=== PATIENT | male | born 1955 | race Caucasian/White ===

== ENCOUNTER 2020-04-26 12:30 | Outpatient (CLI) | payer MEDICARE, MEDICAID, SELFPAY | END 2020-04-26 12:31 | disposition home or self-care (01) | LOC: SLEEP 04-27 16:02 | PROVIDERS: Family Provider Nurse Practitioner Family; PCP Nurse Practitioner Family; Visit Provider Nurse Practitioner | DX: G47.30 Sleep apnea, unspecified (principal) | CPT/HCPCS: G0399 ==

== ENCOUNTER 2020-06-03 20:00 | Outpatient (CLI) | payer MEDICARE, MEDICAID, SELFPAY | END 2020-06-03 20:01 | disposition home or self-care (01) | LOC: SLEEP 06-04 08:53 | PROVIDERS: Family Provider Nurse Practitioner Family; PCP Nurse Practitioner Family; Visit Provider Nurse Practitioner | DX: G47.33 Obstructive sleep apnea (adult) (pediatric) (principal) | CPT/HCPCS: 95811 ==

== ENCOUNTER 2022-04-24 13:54 | Emergency (ER) | payer MEDICARE, MEDICAID, SELFPAY ==
[2022-04-24 14:09] VITALS: BP 165/86; PULSE 64; RESP 16; TEMP 36.3; O2SAT 97; BMI 31.8
[2022-04-24 14:31] LABS: Basophils # 0.1 10^3/uL (0.0-0.1); Basophils % 0.6 %; Eosinophils # 0.2 10^3/uL (0.0-0.8); Eosinophils % 1.4 %; Hematocrit 49.5 % (42.0-52.0); Hemoglobin 16.9 g/dL (11.7-16.6); Lymphocytes # 1.2 10^3/uL (0.8-4.8); Lymphocytes % 8.9 %; Mean Corpuscular HGB Conc 34.1 g/dL (30.0-36.0); Mean Corpuscular Hemoglobin 30.7 pg (28.0-34.0); Mean Platelet Volume 10.8 fL (7.4-10.4); Monocytes # 0.8 10^3/uL (0.2-0.9); Neutrophils # 11.36 10^3/uL (1.8-7.7); Neutrophils % 82.5 %; Nucleated Red Blood Cells % 0 %; Platelet Count 228 10^3/cmm (130-400); Red Cell Distribution Width 13.7 % (12.1-15.1); White Blood Count 13.8 10^3/uL (4.0-10.0)
[2022-04-24 14:52] LABS: Blood Urea Nitrogen 16 mg/dL (8-23); Calcium 10.1 mg/dL (8.5-10.5); Carbon Dioxide 23 mmol/L (22-29); Chloride 97 mmol/L (98-107); Glomerular Filtration Rate 96.7 mL/min (90-130); Glucose 152 mg/dL (65-115); Osmolality Calculated 286 mOsm/kg (285-295); Sodium 136 mmol/L (136-145)
--- NOTE | 2022-04-24 14:54 | CTR_ITS ---
PROCEDURE INFORMATION: Exam: CT Abdomen And Pelvis Without Contrast Exam date and time: 04/24/2022 3:27 PM Age: 66 years old Clinical indication: Pain; Other: RT flank; Prior surgery; Surgery date: 6+ months; Surgery type: Appx; Additional info: Flank pain x 2 hrs TECHNIQUE: Imaging protocol: Computed tomography of the abdomen and pelvis without contrast. Radiation optimization: All CT scans at this facility use at least one of these dose optimization techniques: automated exposure control; mA and/or kV adjustment per patient size (includes targeted exams where dose is matched to clinical indication); or iterative reconstruction. COMPARISON: No relevant prior studies available. RADIATION DOSE METRICS: Total DLP (mGy-cm): 1767.44 FINDINGS: Liver: Normal liver size without cirrhosis. Well-defined hypodense lesion in the anterior aspect measuring 2 cm, likely benign such as hepatic cyst. Gallbladder and bile ducts: Cholecystectomy clips. Pancreas: Normal. No ductal dilation. Spleen: Normal. No splenomegaly. Adrenal glands: Normal. No mass. Kidneys and ureters: There is mild right hydronephrosis and diffuse hydroureter and mild regional stranding. No significant regional fluid collection. No obvious ureteral calculi however there is a punctate calculus measuring 2 x 2 x 2 mm in the posterior bladder. Unclear if this is a passed calculus in the lumen or impacted calculus near the right UVJ. Follow-up exam with prone positioning may be considered if clinically indicated. Stomach and bowel: Small amount of fecal retention. No obvious bowel dilatation, pneumatosis or suspicious bowel wall thickening however assessment is limited due to lack of contrast. Colonic diverticulosis. Appendix: Prior appendectomy. Intraperitoneal space: Unremarkable. No free air. No significant fluid collection. Vasculature: No abdominal aortic aneurysm. Lymph nodes: No enlarged lymph nodes. Urinary bladder: There is curvilinear tiny lucency in the submucosal region of urinary bladder suggesting benign finding. However cystitis should also be excluded clinically. No perinephric stranding. Reproductive: Unremarkable as visualized. Bones/joints: Rotatory leftward scoliosis of lumbar spine and rightward scoliosis of lower thoracic spine.. Bibasilar linear scarring-atelectasis. Multilevel vertebral disc degeneration and endplate osteophytes. No acute osseous findings otherwise. Soft tissues: There is a right periumbilical fat-containing hernia with defect measuring 17 mm and hernia sac measuring 4.5 by 3.2 cm. Another smaller midline fat-containing supraumbilical hernia is also present. No bowel containing ventral or inguinal hernias. CT/CT kidney stone [id number] IMPRESSION: 1. Punctate calculus measuring 2 mm in the bladder lumen versus right UVJ. There is mild associated right hydronephrosis and hydroureter and minimal stranding. See discussion above. Additional urinary bladder findings as described above. 2. Colonic diverticulosis. 3. Fat-containing hernias. 4. Other nonacute findings as described.
--- NOTE | 2022-04-24 14:55 | ED_ITS ---
HPI - Abdominal Pain General: Chief Complaint: Abdominal Pain Stated Complaint: back pain Time Seen by Provider: 04/24/22 14:22 Source: patient Mode of arrival: ambulatory History of Present Illness: 66-year-old male presents to the emergency room with complaints of right-sided flank pain with nausea and urgency that began about 2 hours ago he denies any hematuria. No rash no fever sweats or chills. No history of renal stones. MD elicited complaint: flank pain Pertinent past history: none Onset (ago): hour(s) Pain Consistency: constant Location: R flank Severity: moderate Quality: stabbing Radiation: none Exacerbating factors: nothing Relieving factors: nothing Associated Symptoms: Reports nausea; Denies anorexia, belching, bloating, change in bowel habits, change in stool character, chills, coffee ground emesis, constipation, GI cramping, diarrhea, dyspepsia, dysuria, excessive flatus, fever(s), heartburn, hematochezia, hematuria, fecal incontinence, loose stools, melena, poor appetite, syncope and vomiting Review of Systems Const: Denies: fever(s) or chills Card: Denies: chest pain or syncope GI: Reports: abdominal pain and nausea; Denies: vomiting, coffee ground emesis, heartburn, diarrhea, constipation, bloating, GI cramping, belching, excessive flatus, fecal incontinence, change in bowel habits, change in stool character, hematochezia or melena : Reports: flank pain; Denies: difficulty urinating, dysuria, urinary frequency or hematuria [facility] ED PFSH: Medical History (Updated 04/24/22 @ 17:07 by Calos Beck DO) COPD (chronic obstructive pulmonary disease) Headache Hernia HTN (hypertension) Mixed hyperlipidemia Obstructive sleep apnea Scoliosis Family History (Updated 02/14/22 @ 10:08 by Tracye Belcher RN) Father Cardiovascular disease Prostate cancer Mother Diabetes Cancer Physical Exam Const: COMMON NORMALS: no acute distress GENERAL APPEARANCE: cooperative and comfortable ORIENTATION/CONSCIOUSNESS: Yes awake, Yes oriented to person, Yes oriented to place and Yes oriented to time HENMT: COMMON NORMALS: normocephalic, atraumatic and hearing grossly normal bilaterally HEAD & SCALP: normocephalic and atraumatic Neck/C-Spine: COMMON NORMALS: no JVD Resp: COMMON NORMALS: normal respiratory effort, No retractions, No use of accessory muscles and clear to auscultation bilaterally AUSCULTATION: clear to auscultation bilaterally Cardio: COMMON NORMALS: no JVD, regular rate, regular rhythm and No murmurs present (Cardio) RATE: regular rate RHYTHM: regular rhythm GI: COMMON NORMALS: Soft to palpation and No hepatosplenomegaly present AUSCULTATION: Yes normoactive bowel sounds PALPATION: Yes Soft to palpation, No Tenderness to palpation present (GI), No Guarding due to palpation present (GI) and Yes No hepatosplenomegaly present Extremity: COMMON NORMALS: normal to inspection, capillary refill normal, no clubbing, cyanosis or edema, no calf tenderness and no pedal edema Neuro: SENSORIUM/ORIENTATION: Yes oriented to person, Yes oriented to place and Yes oriented to time Skin: COMMON NORMALS: no rashes or lesions noted GENERAL SKIN EXAM: no rashes or lesions noted Course Vital Signs: Vital signs: Vital Signs Temperature 97.4 F L 04/24/22 14:09 Pulse Rate 64 04/24/22 14:09 Respiratory Rate 19 H 04/24/22 16:29 Blood Pressure 165/86 04/24/22 14:09 Pulse Oximetry 93 04/24/22 16:29 MDM - Abdominal Pain Medical Decision Making Right UVJ stone. We will set him strain urine start tamsulosin hydrocodone and Zofran. Follow-up with urology Medical Records I reviewed the patient's medical records. Lab Data I reviewed the patient's lab results. : 04/24/22 14:26 04/24/22 14:26 Labs/Radiology: Radiology Impressions Abdomen/Pelvis CT 04/24/22 14:54 IMPRESSION: 1. Punctate calculus measuring 2 mm in the bladder lumen versus right UVJ. There is mild associated right hydronephrosis and hydroureter and minimal stranding. See discussion above. Additional urinary bladder findings as described above. 2. Colonic diverticulosis. 3. Fat-containing hernias. 4. Other nonacute findings as described. Laboratory Results WBC 13.8 10^3/uL (4.0-10.0) H 04/24/22 14:26 RBC 5.50 10^6/uL (4.1-5.3) H 04/24/22 14:26 Hgb 16.9 g/dL (11.7-16.6) H 04/24/22 14: Hct 49.5 % (42.0-52.0) 04/24/22 14: MCV 90.0 fl (80-94) 04/24/22 14:26 MCH 30.7 pg (28.0-34.0) 04/24/22 14: MCHC 34.1 g/dL (30.0-36.0) 04/24/22 14: RDW 13.7 % (12.1-15.1) 04/24/22 14: Plt Count 228 10^3/cmm (130-400) 04/24/22 14: MPV 10.8 fL (7.4-10.4) H 04/24/22 14: Neut % (Auto) 82.5 % 04/24/22 14: Lymph % (Auto) 8.9 % 04/24/22 14: Reynolds % (Auto) 6.0 % 04/24/22 14: Eos % (Auto) 1.4 % 04/24/22 14:26 Baso % (Auto) 0.6 % 04/24/22 14: Neut # (Auto) 11.36 10^3/uL (1.8-7.7) H 04/24/22 14: Lymph # (Auto) 1.2 10^3/uL (0.8-4.8) 04/24/22 14: Reynolds # (Auto) 0.8 10^3/uL (0.2-0.9) 04/24/22 14: Eos # (Auto) 0.2 10^3/uL (0.0-0.8) 04/24/22 14: Baso # (Auto) 0.1 10^3/uL (0.0-0.1) 04/24/22 14: Nucleated RBC % (auto) 0 % 04/24/22 14: Nucleated RBCs # 0.0 /100WBC 04/24/22 14:26 Sodium 136 mmol/L (136-145) 04/24/22 14:26 Potassium 4.0 mmol/L (3.5-5.1) 04/24/22 14: Chloride 97 mmol/L (98-107) L 04/24/22 14:26 Carbon Dioxide 23 mmol/L (22-29) 04/24/22 14:26 Anion Gap 20.0 (5-19) H 04/24/22 14:26 BUN 16 mg/dL (8-23) 04/24/22 14:26 Creatinine 0.8 mg/dL (0.7-1.2) 04/24/22 14:26 GFR Calculation 96.7 mL/min (90-130) 04/24/22 14:26 Glucose 152 mg/dL (65-115) H 04/24/22 14:26 Calculated Osmolality 286 mOsm/kg (285-295) 04/24/22 14:26 Calcium 10.1 mg/dL (8.5-10.5) 04/24/22 14:26 Total Bilirubin 0.7 mg/dL (0.15-1.2) 04/24/22 14:26 Direct Bilirubin 0.20 mg/dL (0.00-0.30) 04/24/22 14:26 AST 17 U/L (0-40) 04/24/22 14:26 ALT 15 U/L (0-41) 04/24/22 14:26 Alkaline Phosphatase 80 IU/L (40-130) 04/24/22 14:26 Total Protein 7.9 g/dL (6.6-8.7) 04/24/22 14:26 Albumin 4.5 g/dL (3.5-5.2) 04/24/22 14:26 Globulin 3.4 g/dL (1.3-4.6) 04/24/22 14:26 Urine Color Hillary (Yellow) 04/24/22 15:00 Urine Appearance Cloudy (CLEAR) 04/24/22 15:00 Urine pH 6 (5-7) 04/24/22 15:00 Ur Specific Bruner 1.020 (1.005-1.030) 04/24/22 15:00 Urine Protein 1+ (Negative) H 04/24/22 15:00 Urine Glucose (UA) Norm (Normal) 04/24/22 15:00 Urine Ketones 2+ (Negative) H 04/24/22 15:00 Urine Blood 3+ (Negative) H 04/24/22 15:00 Urine Nitrate Negative (Negative) 04/24/22 15:00 Urine Bilirubin 1+ (Negative) H 04/24/22 15:00 Urine Urobilinogen 1 mg/dL (Negative) H 04/24/22 15:00 Ur Leukocyte Esterase Negative (Negative) 04/24/22 15:00 Urine RBC 15-25 /hpf (0-2) H 04/24/22 15:00 Urine WBC 5-10 /hpf (0-5) H 04/24/22 15:00 Ur Squamous Epith Cells 0-4 /hpf (0-5) H 04/24/22 15:00 Amorphous Sediment Not Reportable 04/24/22 15:00 Urine Bacteria 2+ /hpf (NONE) H 04/24/22 15:00 Hyaline Casts 0-4 /lpf H 04/24/22 15:00 Urine Mucus 3+ /hpf 04/24/22 15:00 Discharge Plan Discharge Patient Disposition: Home Clinical Impression: Nephrolithiasis Condition: Stable Prescriptions: New hydrocodone-acetaminophen 5-325 mg tablet 1 tab PO Q6H PRN (Reason: pain) Qty: 15 0RF promethazine 25 mg tablet 25 mg PO Q6H PRN (Reason: nausea and vomiting) Qty: 20 0RF tamsulosin 0.4 mg capsule 0.4 mg PO DAILY Qty: 20 0RF No Action albuterol sulfate 90 mcg/actuation aerosol powdr breath activated 2 inh inhalation Q4H PRN (Reason: Shortness Of Breath) 0RF duloxetine [Cymbalta] 30 mg capsule,delayed release(DR/EC) 30 mg PO DAILY 0RF lisinopril 10 mg tablet 20 mg PO DAILY 0RF rosuvastatin 10 mg tablet 10 mg PO DAILY 0RF fluoxetine 20 mg capsule 20 mg PO DAILY 0RF Discharge Orders: Discharge ED (Routine); Ordered 04/24/22 Ordered By: Calos Beck Referrals: Melecio Walter FNP [Primary Care Provider] - Discharge Diet: Usual diet Discharge Activity: Increase activity as tolerated Patient Instructions: Opioid Safety Activity Restrictions/Additional Instructions: Case management make arrangements for you to follow-up with urology. Strain urine to catch the stone to submit for pathology. Coding Level of Care Code ED Cad Administrator for Chg Fwd Exam Comprehensive
[2022-04-24 15:11] LABS: Alanine Aminotransferase 15 U/L (0-41); Albumin Level 4.5 g/dL (3.5-5.2); Alkaline Phosphatase 80 IU/L (40-130); Aspartate Amino Transferase 17 U/L (0-40); Globulin 3.4 g/dL (1.3-4.6); Total Bilirubin 0.7 mg/dL (0.15-1.2); Total Protein 7.9 g/dL (6.6-8.7)
[2022-04-24 15:16] VITALS: RESP 18; O2SAT 98
[2022-04-24] MEDS: ondansetron 2 mg/ML SDV 2 mL 4 MG IVP (15:16)
[2022-04-24] MEDS: morphine 4 mg/mL SDV 1 mL IVP (15:16)
[2022-04-24 15:21] LABS: Add Urine Microscopic? YES; Bilirubin Urine 1+ (Negative); Blood Urine 3+ (Negative); Glucose Urine UA Norm (Normal); Ketones Urine 2+ (Negative); Leukocyte Esterase Urine Negative (Negative); Nitrate Urine Negative (Negative); Protein Urine 1+ (Negative); Urine Appearance Cloudy (CLEAR); Urine Color Amber (Yellow); Urobilinogen Urine 1 mg/dL (Negative); pH Urine 6 (5-7)
[2022-04-24 15:22] LABS: Add Urine Culture? Yes; Bacteria Urine 2+ /hpf; Hyaline Casts Urine 0-4 /lpf; Mucus Urine 3+ /hpf; RBC Urine 15-25 /hpf (0-2); Squamous Epithelial Cell Urine 0-4 /hpf (0-5)
[2022-04-24 15:50] VITALS: O2SAT 93
[2022-04-24 16:29] VITALS: RESP 19; O2SAT 93
[2022-04-24] MEDS: morphine 4 mg/mL SDV 1 mL 2 MG IVP (16:29)
--- NOTE | 2022-04-25 07:16 | DCPLANNER ---
Addendum entered by Amber Pinto 05/15/22 14:13: Patient had a follow up appointment scheduled for 05.01.[address] Carnes - patient did not attend appointment. Original Note: commercial project manager had message to schedule a follow up appointment for patient with urology. commercial project manager sent patients information to the front office staff at urology. Patients information will be printed and reviewed. Clinic will call patient with appointment information.
== END 2022-04-24 17:23 | disposition home or self-care (01) ==
PROVIDERS: Emergency Provider Family Medicine; PCP Nurse Practitioner Family
DX: N20.0 Calculus of kidney (principal); J44.9 Chronic obstructive pulmonary disease, unspecified; I10 Essential (primary) hypertension; E78.2 Mixed hyperlipidemia
CPT/HCPCS: 74176; 80048; 80076; 81001; 85025; 87086; 96374; 96375; 96376; 99284; J2270; J2405

== ENCOUNTER → 2022-05-30 09:48 | Outpatient (BNVA) | payer MEDICARE, MEDICAID, SELFPAY | PROVIDERS: PCP Nurse Practitioner Family; Visit Provider Orthopaedic Surgery | DX: M17.11 Unilateral primary osteoarthritis, right knee (principal); M41.87 Other forms of scoliosis, lumbosacral region; M47.897 Other spondylosis, lumbosacral region; M47.816 Spondylosis without myelopathy or radiculopathy, lumbar region; M41.9 Scoliosis, unspecified | CPT/HCPCS: 72110; 73560; 73565; 99204 ==

== ENCOUNTER → 2024-05-15 14:16 | Outpatient (BNVA) | payer MEDICARE, MEDICAID, SELFPAY | PROVIDERS: PCP Nurse Practitioner; Referring Provider Nurse Practitioner; Visit Provider Internal Medicine | DX: R07.9 Chest pain, unspecified (principal); E78.2 Mixed hyperlipidemia; I10 Essential (primary) hypertension; R06.02 Shortness of breath; F17.200 Nicotine dependence, unspecified, uncomplicated | CPT/HCPCS: 93005; 99204 ==

== ENCOUNTER 2024-06-10 09:57 | Outpatient (CLI) | payer MEDICARE, MEDICAID, SELFPAY ==
[2024-06-10 10:13] VITALS: BMI 32.4
--- NOTE | 2024-06-10 10:15 | NMCV_ITS ---
NM zully perf SPECT r/s* [id number] Juan Alvarez Age: 68 Gender: M : 1955 Exam Date: 06/10/2024 10:15 Ordering Phys: Shun Bowers M.D ([email or web address]) Technologist: SEBASTIAN Rubio Exam Location: [facility] Indications: CP, SOB STRESS TEST Please see separate stress test report in [facility] for full findings IMAGE PROTOCOL Rest/Stress 1 Lexiscan Day Radiopharmaceutical Dose (mCi) Administration Site Administered by Rest: Tc-99m 10.6 IV SEBASTIAN Rubio Sestamibi Stress:Tc-99m 32.4 IV SEBASTIAN Rubio Sestamibi Rest: 10-Jun-2024 60 Discovery 630 Stress: 10-Jun-2024 30 Discovery 630 0.4mg Lexiscan. Supine position only as patient was unable to lay prone. SPECT RESULTS Technical Quality: Good Raw Data Analysis: Normal Image Corrections: No attenuation or motion correction applied Summed Stress Score: 4 Summed Rest Score: 1 Summed Difference Score: 3 PERFUSION FINDINGS There is small sized, partially reversible perfusion defect seen in apical and apical septal nava. 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 FUNCTIONAL RESULTS (calculated via Gated SPECT) Stress Image LV EF (%): 53 Stress EDV (mL):138 TID: 1.11 Stress ESV (mL):65 FUNCTIONAL FINDINGS: There is normal left ventricular systolic function. IMPRESSIONS 1. 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 2. LV systolic function is normal. Shnu Bowers MD (Electronically Signed) Final Date: 11 June 2024 11:18 S
--- NOTE | 2024-06-10 10:15 | ECG_ITS ---
[facility] Test Date: 2024-06-10 Pat Name: Juan Alvarez Department: Room: Gender: Male Outside Physical Damage Appraiser: : 1955 Requested By: Shun Bowers Order Number: [id number] Bishop MD: Shun Bowers M.D. Interpretive Statements NAME OF STUDY: LEXISCAN SESTAMIBI STRESS TEST INDICATION: [CP/SOB, ] Procedure: At the baseline, the blood pressure was 149/87 mmHg with a heart rate of 61 bpm. The electrocardiogram showed normal sinus rhythm, normal axis with normal ST and T's. The Lexiscan was infused over a period of 20 seconds. A total of 0.4 mg of Lexiscan was infused. The stress phase was continued for a total of 5 minutes. Heart rate was at the end of stress phase was 75 bpm and a blood pressure of 144/87 mmHg. The EKG at the peak infusion revealed normal sinus rhythm with no significant ST-T wave changes. Sestamibi was injected 20 seconds after the Lexiscan infusion. Blood pressure at the end of recovery phase was 125/72 mmHg with a heart rate of 76 bpm. Conclusion: 1. Normal EKG response to Lexiscan infusion 2. No Lexiscan induced chest pain or cardiac arrhythmia. 3. Normal blood pressure and heart rate response. 4. Sestamibi/sestamibi perfusion scan pending; see separate report. Electronically Signed On 06-14-2024 9:33:01 CDT by Shun Bowers M.D. [id number]
[2024-06-10] MEDS: regadenoson 0.4 Mg/5 ml Syringe IVP (11:26)
[2024-06-10 11:38] VITALS: BP 125/72; PULSE 73
--- NOTE | 2024-06-10 14:15 | USCV_ITS ---
Juan Alvarez Age: 68 Gender: M : 1955 Exam Date: 06/10/2024 10:26 Ordering Phys: Shun Bowers M.D ([email or web address]) Technologist: Exam Location: [facility] [place] Indication: cp BP: 136 / 0 HR: 58 Rhythm: Sinus Technical Quality: Adequate MEASUREMENTS (Male / Female) Normal Values 2D ECHO LV Diastolic Diameter PLAX 4.9 cm 4.2 - 5.9 / 3.9 - 5.3 cm IVS Diastolic Thickness 1.3 cm 0.6 - 1.0 / 0.6 - 0.9 cm IVS Systolic Thickness 1.8 cm LVPW Diastolic Thickness 1.0 cm 0.6 - 1.0 / 0.6 - 0.9 cm LVPW Systolic Thickness 1.6 cm LVOT Diameter 2.0 cm LV Ejection Fraction 2D Teich 65.4 % LV Ejection Fraction MOD 4C 67.4 % LA Diameter 3.8 cm RA Systolic Volume 4C AL 84.5 ml RA Systolic Volume 4C MOD 81.7 ml Aorta at Sinotubular Diameter 3.4 cm IVC Diameter 2.5 cm M-MODE LA Ao Ratio MM 1.5 AV Cusp Separation MM 2.6 cm DOPPLER AV Peak Velocity 97.0 cm/s LVOT Peak Velocity 86.0 cm/s AV Area Cont Eq vti 4.2 cm squared AV Area Cont Eq pk 2.9 cm squared MV Area PHT 3.1 cm squared Mitral E to A Ratio 0.8 TR Peak Velocity 407.0 cm/s TR Peak Gradient 66.3 mmHg TV Peak E Velocity 72.0 cm/s Right Atrial Pressure 3.0 mmHg Pulmonary Artery Systolic Pressu 69.3 mmHg PV Peak Velocity 98.0 cm/s FINDINGS Left Ventricle Left ventricle is normal size. LV systolic function is normal with EF of 60 to 65%. No regional wall motion abnormalities are seen. False tendon seen in LV. Grade 1 diastolic dysfunction. Right Ventricle Normal in size and function Right Atrium Dilated Left Atrium Dilated Mitral Valve Structurally normal mitral valve. Aortic Valve Structurally normal aortic valve. No significant stenosis or regurgitation. Tricuspid Valve Mild tricuspid regurgitation. Insufficient TR jet to calculate RVSP Pulmonic Valve Not well visualized Pericardium Normal Aorta Normal in size IVC Appears to be normal CONCLUSIONS LV systolic function is normal with EF of 60-65% Grade 1 diastolic dysfunction Biatrial enlargement Mild tricuspid regurgitation Compared to prior echocardiogram from 2014, no significant changes are seen. Shun Bowers MD (Electronically Signed) Final Date: 14 June 2024 11:51 S
== END 2024-06-10 09:58 | disposition home or self-care (01) ==
PROVIDERS: PCP Nurse Practitioner; Visit Provider Internal Medicine
DX: I50.30 Unspecified diastolic (congestive) heart failure (principal); I51.7 Cardiomegaly; R94.39 Abnormal result of other cardiovascular function study; R07.9 Chest pain, unspecified; R06.02 Shortness of breath
CPT/HCPCS: 36415; 78452; 93017; 93306; 96375; A9500; J2785

== ENCOUNTER → 2024-07-24 09:45 | Outpatient (BNVA) | payer MEDICARE, MEDICAID, SELFPAY | PROVIDERS: PCP Nurse Practitioner; Visit Provider Nurse Practitioner Family | DX: I10 Essential (primary) hypertension (principal); R07.9 Chest pain, unspecified; R94.39 Abnormal result of other cardiovascular function study; F17.210 Nicotine dependence, cigarettes, uncomplicated | CPT/HCPCS: 99214 ==

== ENCOUNTER 2025-06-30 13:50 | Outpatient (CLI) | payer MEDICARE, MEDICAID, SELFPAY ==
--- NOTE | 2025-06-30 13:58 | CT_ITS ---
WS: [id number] CT chest w con* [id number] HISTORY: ABNORMAL FINDINGS ON DX IMAGING OF OTH BODY STRUCTURES TECHNIQUE: Axial imaging performed through the thorax. Coronal and sagittal reformats are submitted. All CT scans at [facility] use at least one of these dose optimization techniques: automated exposure control; mA and/or kV adjustment per patient size (includes targeted exams where dose is matched to clinical indication); or iterative reconstruction. CONTRAST: Omnipaque 350; 100 mL IV. DLP: 638.57 mGy.cm COMPARISON: 08/27/2014, chest CT report 06/18/2025 Lungs and central airway: Deformity of the lungs due to scoliosis thoracolumbar spine. Linear atelectasis at the lung bases. No lobar collapse. No pulmonary mass or nodule. Pleura: Normal. No pleural effusion. Heart and pericardium: Normal size heart with no pericardial effusion. Mediastinum and casey: No mediastinum or hilar adenopathy. Vessels: Atherosclerosis aorta. Marked tortuosity of the thoracic aorta in part due to the scoliosis. Normal size pulmonary artery. Chest wall and lower neck: No soft tissue masses. Upper abdomen: Reidentified is a cyst in the LEFT lobe of the liver measuring 2.2 cm. No adrenal mass. Visualized kidneys are normal. Prior cholecystectomy. Osseous structures: Severe RIGHT curvature thoracic spine. CT/CT chest w con* [id number] IMPRESSION: 1. No pneumonia or mass. 2. Tortuous mildly ectatic thoracic aorta. No aneurysm. 3. Severe scoliosis thoracolumbar spine with curvature to the RIGHT. Resulting in deformity of the mediastinum and lungs. 4. Prior cholecystectomy.
[2025-06-30] MEDS: iohexol 350 mg/mL 500 mL Btl (per mL) IV (14:17)
== END 2025-06-30 13:51 | disposition home or self-care (01) ==
LOC: RAD 13:51
PROVIDERS: PCP Nurse Practitioner; Visit Provider Nurse Practitioner
DX: R93.89 Abnormal findings on diagnostic imaging of other specified body structures (principal); M41.9 Scoliosis, unspecified; J98.11 Atelectasis; K76.89 Other specified diseases of liver; Z90.49 Acquired absence of other specified parts of digestive tract
CPT/HCPCS: 71260

== ENCOUNTER 2025-08-04 12:46 | Outpatient (CLI) | payer MEDICARE, MEDICAID, SELFPAY ==
[2025-08-04 13:25] VITALS: PULSE 70; RESP 18; O2SAT 91
== END 2025-08-04 12:47 | disposition home or self-care (01) ==
PROVIDERS: PCP Nurse Practitioner; Visit Provider Nurse Practitioner
DX: R06.02 Shortness of breath (principal); J44.9 Chronic obstructive pulmonary disease, unspecified; R94.2 Abnormal results of pulmonary function studies
CPT/HCPCS: 94060; 94726; 94729; J7613

== ENCOUNTER 2025-09-23 16:28 | Outpatient (CLI) | payer MEDICARE, MEDICAID, SELFPAY ==
--- NOTE | 2025-09-23 16:52 | CTR_ITS ---
PROCEDURE INFORMATION: Exam: CT Chest With Contrast; Diagnostic Exam date and time: 09/23/2025 5:06 PM Age: 69 years old Clinical indication: Abnormal radiologic exam of lung or chest; Follow up abnormal findings in lung field, pneumonia, cough congestion x 1 month; Additional info: Other nonspecific abnormal finding of lung field TECHNIQUE: Imaging protocol: Diagnostic computed tomography of the chest with contrast. Radiation optimization: All CT scans at this facility use at least one of these dose optimization techniques: automated exposure control; mA and/or kV adjustment per patient size (includes targeted exams where dose is matched to clinical indication); or iterative reconstruction. Contrast material: OMNIPAQUE 350; Contrast volume: 100 ml; Contrast route: INTRAVENOUS (IV); COMPARISON: CT chest w con* [id number] 06/30/2025 2:10 PM RADIATION DOSE METRICS: Total DLP (mGy-cm): 699.35 FINDINGS: Lungs: Atelectasis at the right lung base, similar when compared to 06/30/2025. Pleural spaces: Unremarkable. No pneumothorax. No pleural effusion. Heart: Unremarkable. No cardiomegaly. No pericardial effusion. Lymph nodes: Unremarkable. No enlarged lymph nodes. Vasculature: No large or central pulmonary embolism. This is not a CTA protocol. Atherosclerotic changes of the aorta. Liver: Hepatic steatosis. Right hepatic cyst measures 1.9 cm. Gallbladder and biliary ducts: Cholecystectomy. Bones/joints: Severe dextroconvex scoliosis of the lower thoracic spine. Degenerative changes of the spine. Soft tissues: Unremarkable. CT/CT chest w con* [id number] IMPRESSION: 1. Atelectasis at the right lung base, similar when compared to 06/30/2025. 2. No large or central pulmonary embolism. This is not a CTA protocol. 3. Severe dextroconvex scoliosis of the lower thoracic spine. 4. Hepatic steatosis. 5. Cholecystectomy.
[2025-09-23] MEDS: iohexol 350 mg/mL 500 mL Btl (per mL) IV (17:13)
== END 2025-09-23 16:29 | disposition home or self-care (01) ==
LOC: RAD 16:29
PROVIDERS: PCP Nurse Practitioner; Visit Provider Nurse Practitioner
DX: R91.8 Other nonspecific abnormal finding of lung field (principal); J98.11 Atelectasis; I70.0 Atherosclerosis of aorta; K76.0 Fatty (change of) liver, not elsewhere classified; K76.89 Other specified diseases of liver; Z90.49 Acquired absence of other specified parts of digestive tract; M41.9 Scoliosis, unspecified
CPT/HCPCS: 71260

== ENCOUNTER 2025-10-14 13:01 | Outpatient (CLI) | payer MEDICARE, MEDICAID, SELFPAY ==
--- NOTE | 2025-10-14 13:14 | CTR_ITS ---
PROCEDURE INFORMATION: Exam: CTA Chest With Contrast Exam date and time: 10/14/2025 1:19 PM Age: 69 years old Clinical indication: Condition or disease; Lung condition and disease; Atelectasis and other: Shortness of breath; Persistent shortness of breath and atelectasis seen on prior imaging; Additional info: Persistent shortness of breath, persistent ateletasis on darnell TECHNIQUE: Imaging protocol: Computed tomographic angiography of the chest with contrast. Exam focused on the arteries. 3D rendering (Not supervised by radiologist): MIP and/or 3D reconstructed images were created by the technologist. Radiation optimization: All CT scans at this facility use at least one of these dose optimization techniques: automated exposure control; mA and/or kV adjustment per patient size (includes targeted exams where dose is matched to clinical indication); or iterative reconstruction. Contrast material: OMNIPAQUE 350; Contrast volume: 100 ml; Contrast route: INTRAVENOUS (IV); COMPARISON: CT chest w con* [id number] 09/23/2025 5:06 PM RADIATION DOSE METRICS: Total DLP (mGy-cm): 533.04 FINDINGS: Pulmonary arteries: Normal. No pulmonary emboli. Aorta: Unremarkable. No aortic aneurysm. No aortic dissection. Lungs: Patchy atelectasis involves both lung bases. Mild paraseptal emphysema involves both upper lobe regions. There is patchy subpleural fibrosis involving both lung bases posteriorly. Diffuse bronchial dilatation and wall thickening is noted. No lung mass or acute infiltrate noted. Pleural spaces: Unremarkable. No pneumothorax. No pleural effusion. Heart: Unremarkable. No cardiomegaly. No pericardial effusion. Lymph nodes: Unremarkable. No enlarged lymph nodes. Bones/joints: There is prominent scoliosis involving the thoracolumbar spine. Soft tissues: Unremarkable. CT/CT angio chest PE protcl [id number] IMPRESSION: 1. No acute findings. 2. Stable chronic lung changes are noted as detailed above 3. Prominent scoliosis COMMENTS: The presence of pulmonary emphysema on CT is an independent risk factor for lung cancer. In the absence of a history or active diagnosis of lung cancer, it is recommended that this patient with emphysema be evaluated for enrollment in a low dose CT lung cancer screening program.
[2025-10-14] MEDS: iohexol 350 mg/mL 500 mL Btl (per mL) IV (13:23)
== END 2025-10-14 13:02 | disposition home or self-care (01) ==
LOC: RAD 13:01
PROVIDERS: PCP Nurse Practitioner; Visit Provider Nurse Practitioner
DX: J98.11 Atelectasis (principal); R06.02 Shortness of breath; J43.9 Emphysema, unspecified; J84.10 Pulmonary fibrosis, unspecified; M41.9 Scoliosis, unspecified
CPT/HCPCS: 71275